=== PATIENT | female | born 1995 | race Caucasian/White ===

== ENCOUNTER → 2023-05-29 | Outpatient (CLI) | payer OTHER ==
[~2023-05-29] MED LIST: IBU600 MG PO; PRENATAL TABLET PO; ROXICODONE 55 MG/TAB PO
== END ==
LOC: COL.RAD 07:28
DX: K82.4 Cholesterolosis of gallbladder (principal)

== ENCOUNTER 2023-10-03 16:59 | Emergency (ER) | payer OTHER ==
[~2023-10-03] VITALS: Ht 167.6 cm; Wt 90.9 kg
[2023-10-03 17:22] VITALS: TEMP 98.3
[2023-10-03 18:37] LABS: BASO # 0.1 K/mm3 (0.0-0.2); BASO % 0.8 % (0.0-2.0); EOS # 0.4 K/mm3 (0.0-0.7); EOS % 4.1 % (0.0-4.0); GRAN # 6.8 K/mm3 (1.4-6.5); GRAN % 65.3 % (42.2-75.2); HEMATOCRIT 40.6 % (37.0-47.0); HEMOGLOBIN 13.9 g/dl (12.5-16.0); LYMPH # 2.5 K/mm3 (1.2-3.4); LYMPH % 23.9 % (20.0-51.0); MEAN CELL VOLUME 82 fl (80.0-100.0); MEAN CORPUSCULAR HEMOGLOBIN 28 pg (27-31); MEAN CORPUSCULAR HGB CONC 34 g/dl (33.0-37.0); MEAN PLATELET VOLUME 9.1 fl (7.4-10.4); MONO # 0.6 K/mm3 (0.1-0.6); MONO % 5.7 % (1.7-9.3); PLATELET COUNT 347 K/mm3 (130-400); RED BLOOD COUNT 4.95 M/mm3 (4.10-5.30); REDCELL DISTRIBUTION WIDTH-CV 12.2 % (11.5-14.5)
[2023-10-03 18:56] LABS: BILIRUBIN,TOTAL 0.3 mg/dL (0.2-1.2); CALCIUM 9.9 mg/dL (8.4-10.2); CREATININE, serum 0.82 mg/dL (0.57-1.11); POTASSIUM 3.7 mmol/L (3.5-4.5); TOTAL PROTEIN 7.6 gm/dL (6.2-8.1)
[2023-10-03] MEDS ORDERED: NS 50 ML IV SCH (19:22)
[2023-10-03] MEDS ORDERED: Iohexol 300 - 100 ML VIAL IV ONE (19:22)
[2023-10-03 20:40] VITALS: BP 125/72; PULSE 62
== END 2023-10-03 20:40 | disposition home or self-care (01) ==
LOC: COL.ER 16:59
PROVIDERS: Nurse Practitioner
DX: S16.1XXA Strain of muscle, fascia and tendon at neck level, initial encounter (principal); X58.XXXA Exposure to other specified factors, initial encounter
CPT/HCPCS: Q9967